=== PATIENT | female | born 1965 | race American Indian/Alaskan Native ===

== ENCOUNTER 2017-08-19 19:18 | Emergency (ER) | payer MEDICARE, MEDICAID ==
[2017-08-19 20:10] VITALS: BP 150/62
--- NOTE | 2017-08-19 21:04 | EDM.PDOC ---
ED HPI GENERAL MEDICAL PROBLEM - General Chief Complaint: Gastrointestinal Problem Stated Complaint: WORMS IN HER STOOL Time Seen by Provider: 08/19/17 20:20 Source of Information: Reports: Patient History Limitations: Reports: No Limitations - History of Present Illness INITIAL COMMENTS - FREE TEXT/NARRATIVE: Pt clearly saw small pin worms in the stool this am. She hs not had alot of rectal itching or any rectal bleeding. She saw the worms crawling and there were very tiny. Onset: Today Duration: Day(s): Location: Reports: Other (pt is not having other symptoms. ) Associated Symptoms: Reports: No Other Symptoms bilat knees Pain Score (Numeric/FACES): 7 - Related Data Allergies Allergy/AdvReac Type Severity Reaction Status Date / Time ketorolac tromethamine Allergy Rash Verified 08/19/17 20:08 [From Toradol] ibuprofen Allergy Indigestion Uncoded 08/19/17 20:08 percocet Allergy Rash Uncoded 08/19/17 20:08 Home Meds: Home Meds Insulin Detemir [Levemir] 40 unit SQ BEDTIME 11/24/13 [History] Insulin Detemir [Levemir] 60 unit SQ DAILY 11/24/13 [History] Hydrocodone 5 mg PO Q4H PRN 04/25/15 [History] Doxylamine/Phenylep/DM/Aspirin [[place] Plus Night Tb Eff] 1 tab PO ASDIRECTED PRN 08/13/15 [History] Gabapentin [Neurontin] 300 mg PO BID 08/19/17 [History] Insulin Aspart [NovoLOG] 7 unit SQ TIDMEALS 08/19/17 [History] Past Medical History Gastrointestinal History: Reports: Cholelithiasis 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: , 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 Musculoskeletal History: Reports: Fracture Other Musculoskeletal History: femur fx Endocrine/Metabolic History: Reports: Diabetes, Type II - Past Surgical History GI Surgical History: Reports: Cholecystectomy Musculoskeletal Surgical History: Reports: Knee Replacement Social & Family History - Tobacco Use Smoking Status *Q: Never Smoker Years of Tobacco use: 30 Packs/Tins Daily: 0.5 Used Tobacco, but Quit: Yes Month Tobacco Last Used: 5 Second Hand Smoke Exposure: Yes - Caffeine Use Caffeine Use: Reports: Coffee, Soda - Alcohol Use Days Per Week of Alcohol Use: 0 - Recreational Drug Use Recreational Drug Use: No ED ROS GENERAL - Review of Systems Review Of Systems: See Below Constitutional: Reports: No Symptoms HEENT: Reports: No Symptoms Respiratory: Reports: No Symptoms Cardiovascular: Reports: No Symptoms Endocrine: Reports: No Symptoms GI/Abdominal: Reports: Other ( worms in the stool) : Reports: No Symptoms ED EXAM, GI/ABD - Physical Exam Exam: See Below Text/Narrative:: pt saw small worms in her stool this am. Her arminda had pin worms a few monthes ago. Exam Limited By: No Limitations General Appearance: Alert Eyes: Bilateral: Normal Appearance, EOMI Ears: Normal External Exam Nose: Normal Inspection Throat/Mouth: Normal Inspection Head: Atraumatic Neck: Normal Inspection Respiratory/Chest: No Respiratory Distress Cardiovascular: Normal Peripheral Pulses GI/Abdominal Exam: Non-Tender Rectal (Female) Exam: Other (no rectal irritation) Back Exam: Normal Inspection Course - Vital Signs Last Recorded V/S: Last Vital Signs Temp 36.3 C 08/19/17 20:16 Pulse 89 08/19/17 20:16 Resp 16 08/19/17 20:16 BP 150/62 H 08/19/17 20:16 Pulse Ox 95 08/19/17 20:16 Departure - Departure Time of Disposition: 21:00 Disposition: Home, Self-Care 01 Condition: Fair Clinical Impression: Enterobius vermicularis infection - Discharge Information Referrals: Diana Fairchild I HEDIS REGISTERED NURSE RN [Primary Care Provider] - Forms: ED Department Discharge Care Plan Goals: watch for worms in other family members particularly the 4 year old arminda and her , take mebendazole 100mg no and repeat another 100mg in 2 weeks.
== END 2017-08-19 21:13 | disposition home or self-care (01) ==
LOC: JP.ED 19:18
DX: B80 Enterobiasis (principal); E11.9 Type 2 diabetes mellitus without complications; Z79.4 Long term (current) use of insulin; Z88.6 Allergy status to analgesic agent; Z88.8 Allergy status to other drugs, medicaments and biological substances; Z90.710 Acquired absence of both cervix and uterus
CPT/HCPCS: 99284

== ENCOUNTER 2025-03-07 15:02 | Emergency (ER) | payer MEDICAID, MEDICARE, OTHER ==
[2025-03-07 15:10] VITALS: BP 130/61; PULSE 63
[2025-03-07 15:38] LABS: BASOPHILS ABSOLUTE AUTO 0.04 K/uL (0.00-0.10); BASOPHILS PERCENT AUTO 0.6 % (0.1-1.3); EOSINOPHILS ABSOLUTE AUTO 0.11 K/uL (0.00-0.40); EOSINOPHILS PERCENT AUTO 1.8 % (0.0-5.4); HEMATOCRIT 38.4 % (34.3-46.0); HEMOGLOBIN 13.1 g/dL (11.2-15.5); IMMATURE GRAN PERCENT AUTO 0.3 % (0.0-0.7); LYMPHOCYTES PERCENT AUTO 33.9 % (11.4-47.7); MEAN CORPUSCULAR HEMOGLOBIN 30.7 pg (31.6-35.5); MEAN CORPUSCULAR HGB CONC 34.1 g/dL (31.6-35.5); MEAN CORPUSCULAR VOLUME 89.9 fL (81.4-99.0); MONOCYTES ABSOLUTE AUTO 0.48 K/uL (0.20-0.90); MONOCYTES PERCENT AUTO 7.8 % (3.3-12.6); NEUTROPHILS ABSOLUTE AUTO 3.44 K/uL (1.0-7.6); NEUTROPHILS PERCENT AUTO 55.6 % (40.0-78.1); PLATELET COUNT,PLT 225 K/uL (130-375); RED BLOOD CELL COUNT 4.27 M/uL (3.77-5.24); WHITE BLOOD CELL COUNT,WBC 6.2 K/uL (3.2-11.0)
[2025-03-07 15:40] LABS: IMMATURE GRAN ABSOLUTE AUTO 0.02 K/uL (0.00-0.23)
[2025-03-07 16:01] LABS: ALANINE AMINOTRANSFERASE,ALT 30 U/L (12-78); ALBUMIN 3.5 g/dL (3.4-5.0); ALKALINE PHOSPHATASE 89 U/L (46-116); ANION GAP 7.3 mmol/L (5.0-14.0); ASPARTATE AMNIOTRANSFERASE,AST 17 U/L (15-37); BILIRUBIN TOTAL 0.7 mg/dL (0.2-1.0); BLOOD UREA NITROGEN,BUN 12 mg/dL (7-18); CALCIUM 9.4 mg/dL (8.5-10.1); CARBON DIOXIDE,CO2 29 mmol/L (21-32); CHLORIDE,CL 104 mmol/L (100-108); CREATININE 0.7 mg/dL (0.6-1.0); EST CRCL DRUG DOSING (CG) 82.07 mL/min; ESTIMATED GFR 98 mL/min (>60); GLUCOSE RANDOM 139 mg/dL (74-106); POTASSIUM,K 4.2 mmol/L (3.6-5.2); PROTEIN TOTAL,TP 6.9 g/dL (6.4-8.2); SODIUM,NA 140 mmol/L (140-148)
[2025-03-07 16:03] LABS: C-REACTIVE PROTEIN < 0.50 mg/dL (<0.50)
[2025-03-07 16:26] LABS: LYME AB IgG Negative (Negative)
[2025-03-07 16:29] LABS: LYME AB IgM Negative (Negative)
== END 2025-03-07 16:58 | disposition home or self-care (01) ==
LOC: JP.ED 15:02
DX: S20.362A Insect bite (nonvenomous) of left front wall of thorax, initial encounter (principal); E11.9 Type 2 diabetes mellitus without complications; Z90.49 Acquired absence of other specified parts of digestive tract; Z79.899 Other long term (current) drug therapy; Z79.84 Long term (current) use of oral hypoglycemic drugs; Z88.8 Allergy status to other drugs, medicaments and biological substances; W57.XXXA Bitten or stung by nonvenomous insect and other nonvenomous arthropods, initial encounter
CPT/HCPCS: 80053; 85025; 86140; 86618; 87468; 87469; 87484; 87798; 99282